=== PATIENT | female | born 1980 | race Caucasian/White ===

== ENCOUNTER 2016-09-30 06:44 | Inpatient (IN) | payer BC ==
[2016-09-23 08:48] LABS: BASOPHILS 0.3 %; BASOPHILS ABSOLUTE 0.02 10/3/uL (0.0-0.16); EOSINOPHILS 3.6 %; EOSINOPHILS ABSOLUTE 0.26 10/3/uL (0.0-0.53); HEMATOCRIT 45.1 % (36.0-48.0); HEMOGLOBIN 15.5 g/dL (12.0-16.0); IMMATURE GRANULOCYTES 0.1 %; IMMATURE GRANULOCYTES ABSOLUTE 0.01 10/3/uL (0.0-0.11); LYMPHOCYTES 24.7 %; LYMPHOCYTES ABSOLUTE 1.77 10/3/uL (0.67-4.30); MEAN CORPUS HGB CONC 34.4 g/dL (32.0-36.0); MEAN CORPUSCULAR HEMOGLOB 30.5 pg (26.0-34.0); MEAN CORPUSCULAR VOLUME 88.8 fL (80-100); MEAN PLATELET VOLUME 10.8 fL (9.2-13.0); MONOCYTES 7.7 %; MONOCYTES ABSOLUTE 0.55 10/3/uL (0.21-1.20); NEUTROPHILS 63.6 %; NEUTROPHILS ABSOLUTE 4.55 10/3/uL (2.02-8.40); PLATELET COUNT 241 10/3/uL (150-400); RBC DISTRIBUTION WIDTH 13.3 % (12.0-16.0); RED CELL COUNT 5.08 10/6/uL (4.0-5.6); WHITE BLOOD CELLS 7.2 10/3/uL (4.5-10.5)
[2016-09-23 08:49] LABS: MANUAL DIFF NO %
[2016-09-23 08:56] LABS: PARTIAL THROMBO TIME 29.9 SEC (22.5-37.2)
[2016-09-23 09:03] LABS: ASCORBIC ACID (UR NOT ORDER) NEG (NEG); BILIRUBIN, URINE NEGATIVE (NEG); KETONE, URINE 80 MG/DL (NEG); LEUKOCYTE ESTERASE(NOT OR MOD (NEG); WBC (NOT ORDERED) (RFLEX) 15 (0-5)
[2016-09-23 10:37] LABS: A/G RATIO 1.1 (0.7-1.9); ALBUMIN 4.1 G/DL (3.5-5.0); ALKALINE PHOSPHATASE 62 U/L (45-117); BUN (BLOOD UREA NITROGEN) 14 MG/DL (6-23); CALCIUM, SERUM 9.4 MG/DL (8.5-10.4); CHLORIDE, SERUM 103 MMOL/L (96-112); CHOL/HDL RATIO(NOT ORDER) 4.7 (0-5); CHOLESTEROL 180 MG/DL (< 200); CO2 (CARBON DIOXIDE) 28 MMOL/L (24-34); CREATININE 0.84 MG/DL (0.55-1.02); GFR AFRICAN AMERICAN 102 ML/MIN (>=60); GFR NON AFRICAN AMERICAN 88 ML/MIN (>=60); GLOBULIN 3.6 G/DL (2.5-4.1); GLUCOSE, SERUM 82 MG/DL (60-99); HDL CHOLESTEROL 38 MG/DL (> 49); IRON, SERUM 71 MCG/DL (35-150); LDL CHOLESTEROL 121 MG/DL (< 130); NON-HDL CHOLESTEROL 142 MG/DL (< 160); POTASSIUM, SERUM 4.7 MMOL/L (3.5-5.3); SGOT(AST) 18 U/L (5-40); SGPT(ALT) 28 U/L (5-65); SODIUM, SERUM 142 MMOL/L (135-148); TOTAL BILIRUBIN 0.9 MG/DL (0-1.2); TOTAL PROTEIN 7.7 G/DL (6.0-8.5); TRIGLYCERIDE 105 MG/DL (< 150)
[2016-09-23 10:38] LABS: FOLATE 31.4 NG/ML (>5.2)
--- NOTE | ~2016-09-30 | OP ---
Record Of Operation [facility] [address] [place]. [address] NAME: AMINA OSWALD : 76 STATUS : ADM IN PAT#: [id number] AGE: 36 ADM/REG DATE : 09/30/16 MR#: [id number] REPORT SERV DATE: 09/30/16 DICTATED BY: VIOLETTA COREA DATE: 09/30/16 REPORT STATUS : Draft TRANSCRIBED BY: MODRemington DATE: 09/30/16 DATE OF PROCEDURE: PREOPERATIVE DIAGNOSIS: Morbid obesity. POSTOPERATIVE DIAGNOSIS: Morbid obesity. OPERATION: Laparoscopic sleeve gastrectomy. SURGEON: Violetta Corea M.D. ANESTHESIA: General endotracheal. COMPLICATIONS: None. INDICATION OF THE OPERATION: This is a 36-year-old white female with morbid obesity with a BMI of 50.4 and a weight of 312.2 pounds and associated polycystic ovarian syndrome. DESCRIPTION OF OPERATION: The patient was taken to the operating room and after adequate general anesthesia, was prepped and draped in a sterile manner. A total of 5 trocars were placed in the upper abdomen. Carefully we the left lobe of the liver. Identified the upper stomach anatomy. We did remove some of the epiphrenic fat pad on top of the stomach using the Harmonic Scalpel and then we started dissecting into the lesser sac at the level of the lower body of the stomach. Greater curvature and started dissecting the greater curvature with the Harmonic Scalpel all the way up to the fundus. Mobilized the fundus all the way up to the left tino. The left tino was completely mobilized posteriorly and then carefully, we continued dissection on the greater curvature all the way down to the distal antrum to about 2 to 3 cm from the pylorus. Then, we introduced a 36-[place] blunt-tip bougie suction catheter all the way down to the distal antrum, put it on suction to delineate well the stomach and started stapling about 5 cm from the pylorus using the [place] automatic stapler with a green load and then stapled about 5 staplings to complete the staple line. Stapled along that bougie. Staple line looked intact. There was no evidence of bleeding or oozing. Then we tacked the greater omentum into the staple line, the top, middle, and lower portion with the interrupted Vicryl 2-0 sutures, then removed the calibration tube and we put it in and out to verify there was no evidence of obstruction and then removed the stomach specimen through the 15 mm trocar site after we stretched it with a Sherine and then closed that fascial defect with an EFX fascial closure device with a Vicryl #0, then removed all the trocars and liver retractor under direct visualization and closed all the incisions with subcuticular Monocryl. The patient tolerated the procedure well without any problems. NAVEEN Record Of [address] [place]. [address] NAME: AMINA OSWALD : 76 STATUS : ADM IN [facility]#: [id number] AGE: 36 ADM/REG DATE : 09/30/16 MR#: [id number] REPORT SERV DATE: 09/30/16 DICTATED BY: VIOLETTA COREA DATE: 09/30/16 REPORT STATUS : Draft TRANSCRIBED BY: KOBY DATE: 09/30/16 Violetta Villafuerte M.D. / [id number] CC: Violetta Corea M.D.
[~2016-09-30 06:44] MED LIST: MULTIVITAMI1 PO
[2016-10-01] MEDS ORDERED: SUCR PO (12:26)
== END 2016-10-01 13:40 | disposition home or self-care (01) | DRG 621 ==
LOC: SDC/OF 06:44 → PACU 10:00 → 2SO 12:01
PROVIDERS: Surgery
PROC: 0DB64Z3 Excision of Stomach, Percutaneous Endoscopic Approach, Vertical (ICD-10-PCS; principal; 2016-09-30 08:15)
DX: E66.01 Morbid (severe) obesity due to excess calories (principal); E28.2 Polycystic ovarian syndrome; Z68.43 Body mass index [BMI] 50.0-59.9, adult; Z82.49 Family history of ischemic heart disease and other diseases of the circulatory system; Z83.3 Family history of diabetes mellitus; E78.00 Pure hypercholesterolemia, unspecified; K21.9 Gastro-esophageal reflux disease without esophagitis; N39.3 Stress incontinence (female) (male); M12.9 Arthropathy, unspecified
CPT/HCPCS: 74246; 80053; 80061; 81001; 82607; 82746; 83036; 83540; 84443; 84703; 85025; 85610; 85730; 87086; 88307; 93005; A9270-GY; C9113; J0330; J0690; J2250; J2370; J2405; J2550; J2710; J3010